=== PATIENT | female | born 1975 | race Caucasian/White ===

== ENCOUNTER 2020-07-26 22:02 | Emergency (ER) | payer MEDICAID, SELFPAY ==
[2020-07-26 22:05] VITALS: BP 109/65; PULSE 77; RESP 18; TEMP 36.1; O2SAT 99
--- NOTE | 2020-07-26 22:14 | ED.GENADUL_ITS ---
Discharge Plan Disposition Patient Disposition: HOME Condition: Stable Discharge Details Clinical Impression: Pain, dental Primary Care Provider: Sandrita,Local ED Provider: Cristhian Mandujano Home Meds and New Rx's Prescriptions: New prednisone 20 mg tablet 60 mg PO DAILY 4 Days Qty: 12 RF: 0 clindamycin HCl 150 mg capsule 450 mg PO TID 7 Days Qty: 63 RF: 0 Continued fluoxetine 40 mg capsule 40 mg PO DAILY RF: 0 ferrous sulfate 325 mg (65 mg iron) tablet 325 mg PO DAILY RF: 0 gabapentin 300 mg capsule 900 mg PO TID RF: 0 epinephrine 0.3 mg/0.3 mL auto-injector 0.3 mg IM PRN PRNRF: 0 albuterol sulfate [ProAir HFA] 90 mcg/actuation HFA aerosol inhaler 2 puff INHALATION PRN PRNRF: 0 baclofen 5 mg tablet 10 mg PO HS RF: 0 Discharge Instructions Additional Instructions: continue to take 1000mg tylenol and 600mg ibuprofen every 6 hours for pain as needed follow up with you dentist tomorrow if fevers or severe worsening pain return to the emergency department Medical Decision Making 45 yo female who had right upper molars extracted yesterday with her dentist in [place] comes in with pain and swelling since then. Denies fevers, chills, dyspnea or difficulty swallowing. Arrives HD stable with no submandibular s welling no pain over the hyoid or restricted neck movements. Has no drainage in the mouth and sutures in place in right upper gums without purulent discharge and has mild swelling of the gums. Suspect this is post op healing, no findings to suggest abscess or ludwigs. I will start her on clindamcyin to cover for possible wound infection until she calls her dentist tomorrow. She is having discomfort to the point it is affecting her sleep and discussed risks benefits of oxycodone, and she would like a small amount to help sleep. Return precautions given. Differential Diagnosis Differential Diagnosis: post op pain and swelling, dry socket HPI General Mode of arrival: ambulatory . Date/Time Provider Initiated Documentation: 07/26/20 22:08 . Limitations to Documentation: no limitations . Information obtained by: patient . History of Present Illness 45 year old F presents to the emergency department with the chief complaint of mouth pain, described as moderate, Patient reports no radiation. Patient started experiencing this day(s) (1) and it has been constant. No relieving factors improve symptom(s), No exacerbating factors reported . Patient notes no other symptoms.. Patient did receive the following treatments prior to arrival, NSAID Related Data Home Medications Medication Instructions Recorded Confirmed albuterol sulfate [ProAir HFA] 2 puff INHALATION PRN PRN 07/26/20 07/26/20 baclofen 10 mg PO HS 07/26/20 07/26/20 clindamycin HCl 450 mg PO TID 7 Days #63 cap 07/26/20 epinephrine 0.3 mg IM PRN PRN 07/26/20 07/26/20 ferrous sulfate 325 mg PO DAILY 07/26/20 07/26/20 fluoxetine 40 mg PO DAILY 07/26/20 07/26/20 gabapentin 900 mg PO TID 07/26/20 07/26/20 prednisone 60 mg PO DAILY 4 Days #12 tab 07/26/20 Previous Rx's Medication Instructions Recorded clindamycin HCl 450 mg PO TID 7 Days #63 cap 07/26/20 prednisone 60 mg PO DAILY 4 Days #12 tab 07/26/20 Allergies Allergy/AdvReac Type Severity Reaction Status Date / Time bee venom protein (honey bee) Allergy Severe Anaphylaxsi Unverified 07/26/20 22:12 s Penicillins Allergy Intermediate Nausea Unverified 07/26/20 22:12 General Stated Complaint: DentalOral SHAHEED: 4 Review of Systems All systems reviewed & are unremarkable except as noted in HPI and below Constitutional Constitutional: Denies chills, Denies fever(s) and Denies weakness ENT Ears, Nose, Mouth, and Throat: Denies change in voice Cardiovascular Cardiovascular: Denies chest pain and Denies dyspnea Respiratory Respiratory: Denies cough and Denies dyspnea Gastrointestinal Gastrointestinal: Denies abdominal pain, Denies nausea and Denies vomiting Musculoskeletal Musculoskeletal: Denies joint swelling Neurologic Neurologic: Denies weakness [facility] Social History Smoking/Tobacco Use Status: Never Smoking risk assessment performed?: Yes Alcohol Intake: never Substance use type: does not use Do you feel safe at home: Yes Do you feel safe in your relationship?: Yes Exam Const General: no acute distress Orientation: alert HENMT Head: normal to inspection Ears: external ears normal General nose exam: external nose normal Mouth: moist mucous membranes Eyes General: appearance normal, both eyes and all related structures Neck Neck: normal visual inspection Resp Effort & Inspection: normal respiratory effort and able to speak in complete sentences Cardio Rate: regular rate Skin General skin exam: no rashes or lesions noted Neuro General: patient alert and patient oriented x3 Extrem General: normal to inspection Psych Mental Status: mental status grossly normal Course Vital Signs Vital signs: Vital Signs Temperature 36.1 C L 07/26/20 22:05 Pulse 77 07/26/20 22:05 Respiratory Rate 18 07/26/20 22:05 Blood Pressure 109/65 07/26/20 22:05 Pulse Oximetry 99 07/26/20 22:05 Temperature 36.1 C L 07/26/20 22:05 Temperature Source Skin 07/26/20 22:05 Pulse 77 07/26/20 22:05 Respiratory Rate 18 07/26/20 22:05 Respiratory Effort Non-Labored 07/26/20 22:08 Blood Pressure 109/65 07/26/20 22:05 Blood Pressure Position Sitting 07/26/20 22:05 Pulse Oximetry 99 07/26/20 22:05 Oxygen Delivery Method Room Air 07/26/20 22:05 Oxygen Flow Rate 0 07/26/20 22:05 Pain Level 10 07/26/20 22:09
[2020-07-26 22:20] VITALS: BP 109/65; PULSE 77; RESP 18; TEMP 36.6; O2SAT 99
[2020-07-26] MEDS: Clindamycin 150 MG CAP 450 MG PO (22:20)
[2020-07-26] MEDS: predniSONE 20 MG TAB 60 MG PO (22:20)
== END 2020-07-26 22:24 | disposition home or self-care (01) ==
PROVIDERS: Emergency Provider Emergency Medicine
DX: R68.84 Jaw pain; G89.18 Other acute postprocedural pain
CPT/HCPCS: 99283; J7512

== ENCOUNTER 2020-12-29 14:45 | Emergency (ER) | payer MEDICAID, SELFPAY ==
[2020-12-29 14:50] VITALS: BP 106/57; PULSE 90; RESP 16; TEMP 36.7; O2SAT 97
--- NOTE | 2020-12-29 15:11 | ED.GENADUL_ITS ---
Discharge Plan Disposition Patient Disposition: HOME Condition: Stable Discharge Details Clinical Impression: Contusion Primary Care Provider: Thom Cyr ED Provider: Beth Roger Home Meds and New Rx's Prescriptions: No Action fluoxetine 40 mg capsule 60 mg PO DAILY RF: 0 ferrous sulfate 325 mg (65 mg iron) tablet 325 mg PO DAILY RF: 0 gabapentin 300 mg capsule 900 mg PO TID RF: 0 epinephrine 0.3 mg/0.3 mL auto-injector 0.3 mg IM PRN PRNRF: 0 albuterol sulfate [ProAir HFA] 90 mcg/actuation HFA aerosol inhaler 2 puff INHALATION PRN PRNRF: 0 baclofen 5 mg tablet 10 mg PO HS RF: 0 Discharge Instructions Instructions: Hematoma (ED) Additional Instructions: Rest, Ice, Compression, Elevation. Return to the ED for any severe increased pain, problems with blood circulation if your foot turns cold blue numb or tingly or any concerns. Use Estuardo wrap daily for the next 2 to 3 days. Please take Tylenol or Ibuprofen with food every 4-6 hours as needed for pain and swelling. Follow up with primary care provider in 3-5 days. Return to ED sooner if any worsening or concerns. Increase oral fluids. Referrals: Thom Cyr [Primary Care Provider] - Medical Decision Making 44-year-old female presents to the ER with right lower extremity contusion. Patient states she fell on a carpeted floor yesterday mechanical fall. There is a area of ecchymosis noted to the right anterior lopez, distal dorsal pedal pulses are intact and palpable. Patient has no other complaints at this time. She is concerned because the bruising is hard. She has a past medical history of Mhhplfk-Rahzf-Iiezh disease and has some decreased sensation to her lower extremities. EXAM:? XR TIB/FIB RT CLINICAL HISTORY: ? Contusion, fall, R/O fracture.? TECHNIQUE:? 2D digital imaging was performed. COMPARISON:? No exams were available for comparison FINDINGS: BONES: No acute fracture is present. No bony destructive lesion is seen. Visualized portion of knee and ankle joints are unremarkable. SOFT TISSUE: Rounded calcifications anterior subcutaneous fat. IMPRESSION: Unremarkable radiographs of the right tibia and fibula. Will place patient in estuardo wrap discuss RICE procedures with her. Patient verbalized understanding all of her questions were answered to the best my ability. Discussed strict return instruction and home care including Estuardo wrap ice HPI General Mode of arrival: ambulatory . Date/Time Provider Initiated Documentation: 12/29/20 14:45 . Limitations to Documentation: no limitations . Information obtained by: patient . HPI Narrative: 44-year-old female presents to the ER with right lower extremity contusion. Patient states she fell on a carpeted floor yesterday mechanical fall. There is a area of ecchymosis noted to the right anterior lopez, distal dorsal pedal pulses are intact and palpable. Patient has no other complaints at this time. She is concerned because the bruising is hard. She has a past medical history of Ybmiuje-Ejnzp-Wdwqo disease and has some decreased sensation to her lower extremities. Related Data Home Medications Medication Instructions Recorded Confirmed albuterol sulfate [ProAir HFA] 2 puff INHALATION PRN PRN 07/26/20 12/29/20 baclofen 10 mg PO HS 07/26/20 12/29/20 epinephrine 0.3 mg IM PRN PRN 07/26/20 12/29/20 ferrous sulfate 325 mg PO DAILY 07/26/20 12/29/20 fluoxetine 60 mg PO DAILY 07/26/20 12/29/20 gabapentin 900 mg PO TID 07/26/20 12/29/20 Allergies Allergy/AdvReac Type Severity Reaction Status Date / Time bee venom protein (honey bee) Allergy Severe Anaphylaxsi Unverified 12/29/20 14:57 s Penicillins Allergy Intermediate Nausea Unverified 12/29/20 14:57 General Stated Complaint: Orthopedic SHAHEED: 4 Review of Systems All systems reviewed & are unremarkable except as noted in HPI and below Musculoskeletal Comments: Right anterior leg contusion, s/p fall [facility] Social History Smoking/Tobacco Use Status: Never Smoking risk assessment performed?: Yes Alcohol Intake: never Substance use type: does not use Do you feel safe at home: Yes Do you feel safe in your relationship?: Yes Exam Extrem Right lower extremity: full ROM and lower leg Details: localized swelling and ecchymosis mid lower leg anterior Upper/lower leg/hip images: 1. Ecchymosis Course Vital Signs Vital signs: Vital Signs Temperature 36.7 C 12/29/20 14:50 Pulse 90 12/29/20 14:50 Respiratory Rate 16 12/29/20 14:50 Blood Pressure 106/57 L 12/29/20 14:50 Pulse Oximetry 97 12/29/20 14:50 Temperature 36.7 C 12/29/20 14:50 Temperature Source Temporal Artery Scan 12/29/20 14:50 Pulse 90 12/29/20 14:50 Respiratory Rate 16 12/29/20 14:50 Blood Pressure 106/57 L 12/29/20 14:50 Blood Pressure Position Supine 12/29/20 14:50 Pulse Oximetry 97 12/29/20 14:50 Oxygen Delivery Method Room Air 12/29/20 14:50 Oxygen Flow Rate 0 12/29/20 14:50 Pain Level 8 12/29/20 14:50
--- NOTE | 2020-12-29 15:16 | DI.RAD_ITS ---
Exam(s) XR TIB/FIB RT EXAM: XR TIB/FIB RT CLINICAL HISTORY: Contusion, fall, R/O fracture. TECHNIQUE: 2D digital imaging was performed. COMPARISON: No exams were available for comparison FINDINGS: BONES: No acute fracture is present. No bony destructive lesion is seen. Visualized portion of knee a nd ankle joints are unremarkable. SOFT TISSUE: Rounded calcifications anterior subcutaneous fat. IMPRESSION: Unremarkable radiographs of the right tibia and fibula. DATA REPOSITORY: RADIATION DOSE DELIVERED:
[2020-12-29 15:45] VITALS: BP 131/74; PULSE 81; RESP 16; TEMP 36.8; O2SAT 99
== END 2020-12-29 15:45 | disposition home or self-care (01) ==
PROVIDERS: Emergency Provider Registered Nurse Emergency; PCP Family Medicine
DX: S80.11XA Contusion of right lower leg, initial encounter (principal); W18.30XA Fall on same level, unspecified, initial encounter
CPT/HCPCS: 99283; 73590; 99282

== ENCOUNTER 2021-04-05 11:30 | Emergency (ER) | payer MEDICAID, SELFPAY ==
--- NOTE | 2021-04-05 11:30 | DI.RAD_ITS ---
Exam(s) XR LUMBAR SPINE COMPLETE EXAM: XR LUMBAR SPINE COMPLETE CLINICAL HISTORY: lower back pain. TECHNIQUE: 2D digital imaging was performed. COMPARISON: No exams were available for comparison FINDINGS: There is no evidence fracture or listhesis nor pars defects. Mild disc space narrowing at L5-S1 leve l and at 1-2 level and there is anterior osseous lipping at L1-2 level also noted. No scoliosis. No obvious without arthropathy in the lumbar spine. Sacroiliac joints appear unremarkable. No osseous lesions. No scoliosis. IMPRESSION: Subtle degenerative disc disease at L5-S1 and L1-2 levels. DATA REPOSITORY: RADIATION DOSE DELIVERED:
[2021-04-05 11:33] VITALS: BP 100/68; PULSE 107; RESP 18; TEMP 36.7; O2SAT 97
--- NOTE | 2021-04-05 11:42 | W.ED.GENAD ---
Discharge Plan Disposition Patient Disposition: HOME Condition: Stable Discharge Details Clinical Impression: Low back pain Primary Care Provider: Thom Cyr ED Provider: Cristhian Mandujano Home Meds and New Rx's Prescriptions: New cyclobenzaprine 10 mg tablet 10 mg PO TID PRNQty: 20 RF: 0 Continued fluoxetine 40 mg capsule 60 mg PO DAILY RF: 0 ferrous sulfate 325 mg (65 mg iron) tablet 325 mg PO DAILY RF: 0 gabapentin 300 mg capsule 900 mg PO TID RF: 0 epinephrine 0.3 mg/0.3 mL auto-injector 0.3 mg IM PRN PRNRF: 0 albuterol sulfate [ProAir HFA] 90 mcg/actuation HFA aerosol inhaler 2 puff INHALATION PRN PRNRF: 0 baclofen 5 mg tablet 10 mg PO HS RF: 0 topiramate 25 mg tablet 25 mg PO QAM RF: 0 Discharge Instructions Instructions: Low Back Strain (ED) Additional Instructions: take 1000mg tylenol and 600mg ibuprofen every 6 hours for pain as needed if you continue to have pain in a week see your primary care provider return to the emergency department if you feel more ill, have fevers, difficulty urinating or severe worsening pain Medical Decision Making 45 yo female comes in with lower back pain. She states she has CMT and her balance is off frequently and yesterday this happened and fell on her anterior knees, denies loc or hitting head. She woke up this morning and has had low back pain since. Denies fevers, difficulty urinating, denies alcohol or drug use. She can't think of anything that makes it better. She has a stable gait, and on exam has no saddle anesthesia, normal reflexes and normal distal sensation. She localizes the pain across the lumbar region, no midline tenderness, no erythema, no warmth. denies urinary symptoms and has no abdomen tenderness. I suspect musle spasm vs back strain, will obtain xray and treat with nsaids and tylenol. No findings on history or exam to suggest saddle anesthesia, cauda equina, osteomyelitis. xray shows no acute findings, subtle degenerative disc disease, she remains stable with no changes in exam, she is stable for d/c, will start a muscle relaxer and advised to f/u with pcp, return precautions given Differential Diagnosis Differential Diagnosis: muscle spasm, contusion, fracture Imaging Data Radiologic Study: Attestation: I personally reviewed and interpreted this imaging study as follows: Imaging: X-Ray Radiologist's impression: IMPRESSION: Subtle degenerative disc disease at L5-S1 and L1-2 levels HPI General Mode of arrival: ambulatory. Date/Time Provider Initiated Documentation: 04/05/21 11:30. Limitations to Documentation: no limitations. Information obtained by: patient. History of Present Illness 45 year old F presents to the emergency department with the chief complaint of lower back pain, described as moderate, Quality is described as aching, and is localized to the back. Patient reports no radiation. Patient started experiencing this hour(s) (6) and it has been constant. No relieving factors improve symptom(s), No exacerbating factors reported . Patient notes no other symptoms.. Related Data Home Medications Medication Instructions Recorded Confirmed albuterol sulfate [ProAir HFA] 2 puff INHALATION PRN PRN 07/26/20 12/29/20 baclofen 10 mg PO HS 07/26/20 04/05/21 epinephrine 0.3 mg IM PRN PRN 07/26/20 04/05/21 ferrous sulfate 325 mg PO DAILY 07/26/20 04/05/21 fluoxetine 60 mg PO DAILY 07/26/20 04/05/21 gabapentin 900 mg PO TID 07/26/20 04/05/21 cyclobenzaprine 10 mg PO TID PRN #20 tab 04/05/21 topiramate 25 mg PO QAM 04/05/21 04/05/21 Previous Rx's Medication Instructions Recorded cyclobenzaprine 10 mg PO TID PRN #20 tab 04/05/21 Allergies Allergy/AdvReac Type Severity Reaction Status Date / Time bee venom protein (honey bee) Allergy Severe Anaphylaxsi Unverified 04/05/21 11:38 s Penicillins Allergy Intermediate Nausea Unverified 04/05/21 11:38 General Stated Complaint: Nk/Back Pain SHAHEED: 3 Review of Systems All systems reviewed & are unremarkable except as noted in HPI and below Constitutional Constitutional: Denies chills, Denies fever(s) and Denies weakness Cardiovascular Cardiovascular: Denies chest pain and Denies dyspnea Respiratory Respiratory: Denies cough and Denies dyspnea Gastrointestinal Gastrointestinal: Denies abdominal pain, Denies nausea and Denies vomiting Musculoskeletal Musculoskeletal: Denies joint swelling Neurologic Neurologic: Denies weakness [facility] Surgical History (Updated 04/05/21 @ 11:47 by Cristin Blunt) Tubal ligation status Social History Smoking/Tobacco Use Status: Never Smoking risk assessment performed?: Yes Alcohol Intake: former Substance use type: does not use Do you feel safe at home: Yes Do you feel safe in your relationship?: Yes Exam Const General: no acute distress Orientation: alert HENMT Head: normal to inspection Ears: external ears normal General nose exam: external nose normal Mouth: moist mucous membranes Eyes General: appearance normal, both eyes and all related structures Neck Neck: normal visual inspection Resp Effort & Inspection: normal respiratory effort and able to speak in complete sentences Cardio Rate: regular rate Back/Spine/Pelvis Back: no CVA tenderness Thoracic/Lumbar Spine: thoracic and lumbar spine normal to inspection Skin General skin exam: no rashes or lesions noted Neuro General: patient alert and patient oriented x3 Extrem General: normal to inspection Psych Mental Status: mental status grossly normal Course Vital Signs Vital signs: Vital Signs Temperature 36.7 C 04/05/21 11:33 Pulse 107 H 04/05/21 11:33 Respiratory Rate 18 04/05/21 11:33 Blood Pressure 100/68 04/05/21 11:33 Pulse Oximetry 97 04/05/21 11:33 Temperature 36.7 C 04/05/21 11:33 Temperature Source Skin 04/05/21 11:33 Pulse 107 H 04/05/21 11:33 Respiratory Rate 18 04/05/21 11:33 Blood Pressure 100/68 04/05/21 11:33 Blood Pressure Position Standing 04/05/21 11:33 Pulse Oximetry 97 04/05/21 11:33 Oxygen Delivery Method Room Air 04/05/21 11:33 Oxygen Flow Rate 0 04/05/21 11:33 Pain Level 10 04/05/21 11:33 Comment tried heating pad 04/05/21 11:33
[2021-04-05] MEDS: Ibuprofen 600 MG TAB PO (11:46)
[2021-04-05] MEDS: Acetaminophen 500 MG TAB 1000 MG PO (11:46)
== END 2021-04-05 12:56 | disposition home or self-care (01) ==
PROVIDERS: Emergency Provider Emergency Medicine; PCP Family Medicine
DX: M54.5 Low back pain (principal); W18.39XA Other fall on same level, initial encounter
CPT/HCPCS: 99283; 72110

== ENCOUNTER 2021-06-27 07:07 | Emergency (ER) | payer MEDICAID, SELFPAY ==
[2021-06-27 07:18] VITALS: BP 104/57; PULSE 86; RESP 16; TEMP 36.9; O2SAT 98
--- NOTE | 2021-06-27 08:35 | W.ED.GENAD ---
Discharge Plan Disposition Patient Disposition: HOME Condition: Stable Discharge Details Clinical Impression: Weakness, Anemia, Elevated liver enzymes Primary Care Provider: Thom Cyr ED Provider: Lolita Garay Home Meds and New Rx's Prescriptions: Continued fluoxetine 40 mg capsule 60 mg PO DAILY RF: 0 ferrous sulfate 325 mg (65 mg iron) tablet 325 mg PO DAILY RF: 0 gabapentin 300 mg capsule 900 mg PO TID RF: 0 epinephrine 0.3 mg/0.3 mL auto-injector 0.3 mg IM PRN PRNRF: 0 baclofen 5 mg tablet 10 mg PO HS RF: 0 topiramate 25 mg tablet 25 mg PO QAM RF: 0 Discharge Instructions Instructions: Weakness (ED), Anemia (ED) Additional Instructions: Please return immediately to the emergency department if you develop any new or worsening symptoms, if your condition does not improve as expected, or if you become otherwise concerned. It is extremely important that you call soon as possible to make an appointment to be seen in follow-up for this visit by your primary care doctor and your neurologist as we discussed. 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 On exam Pt is well and non-toxic appearing.Benign neuro exam, no focal deficit, normal gait. Concern for Pt's typical chronic recurring symptom of apparently subjective weakness, possible metabolic/lyte derangement, other. Exam/hx at this time not c/w cauda equina/epidural abscess/epidural abscess/other acute spinal cord pathology, meningitis, sepsis, CVA, ecephalitis. Pt stated that she did come to ED for diagnostic w/u given h/o of same several times in the past, followed by neuro at [facility] for this, however out of abundance of caution plan for screening labs. Pt is amenable. Pt states that she does not want to wait in ED for call back from her neurologist. Labs reviewed, Hgb 10.9, AST 130, ALT 143. Unclear significance. I discussed Pt with Dr. Peña of neurology, who states reported symptoms not typical of charcobrianna pina, however given benign exam and report of symptoms as chronically recurring and unchanged, she agrees with no further w/u at this time, outpt f/u. I had a discussion with Patient regarding abnormal lab findings, return to emergency department precautions, home care, and importance of outpatient follow-up. Pt verbalizes understanding of the plan and is amenable. Patient discharged to home with clear plan for outpatient follow-up. All questions were answered. Disposition decision was made weighing the risks and benefits of hospitalization versus outpatient treatment, the risk for further decompensation, and the patient's wishes. Medical Records Medical records reviewed: Yes I reviewed the patient's medical records. Lab Data Lab results reviewed: Yes I reviewed the patient's lab results. Labs: Laboratory Tests Range/Units 06/27/21 06/27/21 08:30 08:30 WBC (4.4-10.8) 10^3/uL 8.42 RBC (3.93-5.22) 10^6/uL 4.34 Hgb (11.2-15.7) g/dL 10.9 L Hct (36.0-46.0) % 36.5 MCV (80-95) fL 84.1 MCH (27.0-33.0) pg 25.1 L MCHC (32.0-36.0) % 29.9 L RDW (11.7-14.6) % 16.1 H Plt Count (130-400) 10^3/uL 375 MPV (8.0-11.0) fL 10.3 Immature Gran % 0.4 Neutrophils % 68.8 Lymphocytes % 22.6 Monocytes % 5.8 Eosinophils % 2.0 Basophils % 0.4 Nucleated RBC % % 0 Absolute Neutrophils (1.2-6.7) 10^3/uL 5.80 Absolute Lymphocytes (1.2-3.4) 10^3/uL 1.90 Absolute Monocytes (0.1-0.8) 10^3/uL 0.49 Absolute Eosinophils (0.0-0.7) 10^3/uL 0.17 Absolute Basophils (0.0-0.2) 10^3/uL 0.03 Sodium (136-145) mmol/L 142 Potassium (3.5-5.1) mmol/L 4.1 Chloride (98-107) mmol/L 108 H Carbon Dioxide (21.0-32.0) mmol/L 28.6 Anion Gap (3-11) mmol/L 5.4 BUN (7-18) mg/dL 9 Creatinine (0.55-1.02) mg/dL 0.7 Estimated GFR/1.73 m2 (mL/min/1.73m2) >= 60.00 Glucose (74-106) mg/dL 82 Calcium (8.5-10.1) mg/dL 8.2 L Phosphorus (2.6-4.7) mg/dL 2.8 Magnesium (1.8-2.4) mg/dL 2.2 Total Bilirubin (0.2-1.0) mg/dL 0.4 AST (15-37) U/L 130 H ALT (14-59) U/L 143 H Alkaline Phosphatase (46-116) U/L 64 Total Protein (6.4-8.2) g/dL 6.8 Albumin (3.4-5.0) g/dL 3.3 L TSH (0.36-3.74) uIU/mL 1.47 HPI General Mode of arrival: ambulatory. Date/Time Provider Initiated Documentation: 06/27/21 07:48. Limitations to Documentation: no limitations. Information obtained by: patient, RN notes reviewed and old records reviewed. HPI Narrative: Rosanne Maya is a 46 y/o woman presenting to the emergency department for b/l leg weakness. Pt reports that she is seen by [facility] for charcot mango tooth disease. Pt reports that at times she has flares in which she develops fatigue and generalized weakness worse in b/l legs, making it difficult for her to stand for prolonged periods. Pt reports that this happens several times per year, lasts for 2-3 days, and then improves. Pt reports that she had this sensation this morning of fatigue and generalized weakness worse in b/l legs, and came to the emergency department for a work note as she stands all day. Pt reports that all symptoms are typical for her, no unusual or atypical features, and states that she does not feel the need for any type of diagnostic testing based on multiple episodes of prior similar episodes in the past. She reports generalized weakness worse in b/l legs, not worse on left/right. No focal UE weakness. Pt reports that she has been able to walk and accomplish ADLs this am. She denies any pain, fever, SOB, cough, numbness, rash, vomiting, diarrhea. Has been eating and drinking normally. Denies h/o recreational use, etoh. No recent med changes. Has been taking all meds as prescribed. Related Data Home Medications Medication Instructions Recorded Confirmed baclofen 10 mg PO HS 07/26/20 06/27/21 epinephrine 0.3 mg IM PRN PRN 07/26/20 06/27/21 ferrous sulfate 325 mg PO DAILY 07/26/20 06/27/21 fluoxetine 60 mg PO DAILY 07/26/20 06/27/21 gabapentin 900 mg PO TID 07/26/20 06/27/21 topiramate 25 mg PO QAM 04/05/21 06/27/21 Allergies Allergy/AdvReac Type Severity Reaction Status Date / Time bee venom protein (honey bee) Allergy Severe Anaphylaxsi Unverified 06/27/21 07:21 s Penicillins Allergy Intermediate Nausea Unverified 06/27/21 07:21 General Stated Complaint: Orthopedic SHAHEED: 4 Review of Systems Narrative: Constitutional: denies fevers Eyes: denies eye pain ENT: denies ear pain, dental pain, sore throat Cardiovascular: denies chest pain, edema Respiratory: denies SOB, cough GI: denies abdominal pain, vomiting, diarrhea : denies flank pain MSK: denies back pain, neck pain, arthralgias, myalgias Skin: denies rash Neuro: denies headaches, numbness, reports weakness as per HPI [facility] Active Problem List (Updated 06/27/21 @ 10:46 by Lolita Garay MD) Contusion (Acute) Low back pain (Acute) Weakness (Acute) Anemia (Chronic) Elevated liver enzymes (Acute) Surgical History (Updated 04/05/21 @ 11:47 by Cristin Blunt) Tubal ligation status Social History Smoking/Tobacco Use Status: Never Smoking risk assessment performed?: Yes Alcohol Intake: former Substance use type: does not use Do you feel safe at home: Yes Do you feel safe in your relationship?: Yes Exam Narrative Exam Narrative: Constitutional: well and [id number], pleasant, conversing normally HENT: head atraumatic/normocephalic/normal inspection, mucous membranes moist Eyes: conjunctiva normal, sclera normal, pupils 3mm b/l, ERRLA, EOMI, no nystagmus Neck: no stridor, normal ROM, trachea midline Chest: normal inspection Resp: normal work of breathing, LCTAB Cardio: normal rate, normal rhythm, no murmur appreciated GI: abdomen soft, non-tender, non-distended Back: normal inspection, no rash, no lumbar TTP/crepitus/deformity Skin: warm, dry, normal color, no rash Neuro: alert, not altered, data solutions architect 2-12 intact, motor 5/5 all extremities, normal sensation all extremities, normal tone, no clonus of LEs, normal gait Ext: no edema, no posterior calf TTP Psych: normal mood, normal affect, normal behavior Course Vital Signs Vital signs: Vital Signs Temperature 36.9 C 06/27/21 07:18 Pulse 86 06/27/21 07:18 Respiratory Rate 16 06/27/21 07:18 Blood Pressure 104/57 L 06/27/21 07:18 Pulse Oximetry 98 06/27/21 07:18 Temperature 36.9 C 06/27/21 07:18 Temperature Source Oral 06/27/21 07:18 Pulse 86 06/27/21 07:18 Respiratory Rate 16 06/27/21 07:18 Respiratory Effort 06/27/21 07:22 Blood Pressure 104/57 L 06/27/21 07:18 Blood Pressure Position Sitting 06/27/21 07:18 Pulse Oximetry 98 06/27/21 07:18 Oxygen Delivery Method Room Air 06/27/21 07:18 Oxygen Flow Rate 0 06/27/21 07:18 Pain Level 7 06/27/21 07:18
[2021-06-27 08:40] LABS: Abs Immature Grans 0.03 10^3/uL (0.0-0.06); Absolute Basophil Count 0.03 10^3/uL (0.0-0.2); Absolute Eosinophil Count 0.17 10^3/uL (0.0-0.7); Absolute Monocyte Count 0.49 10^3/uL (0.1-0.8); Basophils % 0.4; HCT 36.5 % (36.0-46.0); HGB 10.9 g/dL (11.2-15.7); Immature Grans % 0.4; Lymphocytes % 22.6; MCH 25.1 pg (27.0-33.0); MCHC 29.9 % (32.0-36.0); MCV 84.1 fL (80-95); MPV 10.3 fL (8.0-11.0); Monocytes % 5.8; Neutrophils % 68.8; Nucleated RBC 0 %; Platelet Count 375 10^3/uL (130-400); RBC 4.34 10^6/uL (3.93-5.22); RDW 16.1 % (11.7-14.6); RDW-SD 49.1 fL; WBC 8.42 10^3/uL (4.4-10.8)
[2021-06-27 08:57] LABS: Albumin 3.3 g/dL (3.4-5.0); Alkaline Phosphatase 64 U/L (46-116); Anion Gap 5.4 mmol/L (3-11); BUN 9 mg/dL (7-18); Bilirubin, Total 0.4 mg/dL (0.2-1.0); CO2 28.6 mmol/L (21.0-32.0); CREATININE 0.7 mg/dL (0.55-1.02); Calcium 8.2 mg/dL (8.5-10.1); Chloride 108 mmol/L (98-107); Glucose 82 mg/dL (74-106); PHOSPHORUS 2.8 mg/dL (2.6-4.7); Potassium 4.1 mmol/L (3.5-5.1); Sodium 142 mmol/L (136-145); Total Protein 6.8 g/dL (6.4-8.2)
[2021-06-27 08:58] LABS: ALT 143 U/L (14-59); AST 130 U/L (15-37); Magnesium 2.2 mg/dL (1.8-2.4); TSH (W/Ref FT4) 1.47 uIU/mL (0.36-3.74)
== END 2021-06-27 11:32 | disposition home or self-care (01) ==
PROVIDERS: Emergency Provider Student in an Organized Health Care Education/Training Program; PCP Family Medicine
DX: R53.1 Weakness (principal); D64.9 Anemia, unspecified; R74.01 Elevation of levels of liver transaminase levels
CPT/HCPCS: 36415; 80053; 99283; 83735; 84100; 84443; 85025

== ENCOUNTER 2021-10-15 11:54 | Emergency (ER) | payer MEDICAID, SELFPAY ==
--- NOTE | 2021-10-15 12:00 | DI.RAD_ITS ---
Exam(s) XR HIP LT COMPLETE AP PELVIS EXAM: XR HIP LT COMPLETE AP PELVIS INDICATION: Fall. COMPARISON: No exams were available for comparison TECHNIQUE: 2D digital imaging was performed. FINDINGS: No fracture or dislocation. SI joints and pubic symphysis appear intact. IMPRESSION: Negative pelvis and left hip DATA REPOSITORY: RADIATION DOSE DELIVERED:
[2021-10-15 12:02] VITALS: BP 128/59; PULSE 76; RESP 16; TEMP 36.6; O2SAT 98
--- NOTE | 2021-10-15 12:12 | ED.GENADUL_ITS ---
Discharge Plan Disposition Patient Disposition: HOME Condition: Stable Discharge Details Clinical Impression: Sciatica of left side Primary Care Provider: Thom Cyr ED Provider: Beth Roger Home Meds and New Rx's Prescriptions: Continued fluoxetine 40 mg capsule 60 mg PO DAILY 0RF Label Comments: TAKE 1 CAPSULE BY MOUTH ONCE DAILY ferrous sulfate 325 mg (65 mg iron) tablet 325 mg PO DAILY 0RF Label Comments: TAKE ONE TABLET BY MOUTH DAILY gabapentin 300 mg capsule 900 mg PO TID 0RF Label Comments: TK 3 CS PO TID epinephrine 0.3 mg/0.3 mL auto-injector 0.3 mg IM PRN PRN0RF Label Comments: INJECT INTO MUSCLE PRN ALLERGIC REACTION baclofen 5 mg tablet 10 mg PO HS 0RF Label Comments: TAKE ONE TABLET BY MOUTH NIGHTLY topiramate 25 mg tablet 25 mg PO QAM 0RF Label Comments: TAKE 1 TABLET BY MOUTH DAILY Discharge Instructions Instructions: Sciatica (ED) Additional Instructions: At this time x-rays are within normal limits. Alternate ice and heat. Use lidocaine patches which you can obtain [id number]. At this time I feel like this is an exacerbation of a sciatica problem. If continued pain please follow-up with orthopedic or your primary care provider. Please take Tylenol or Ibuprofen with food every 4-6 hours as needed for pain and swelling. Follow up with primary care provider in 3-5 days. Return to ED sooner if any worsening or concerns. Increase oral fluids. Stand Alone Forms: Work Release Referrals: Thom Cyr [Primary Care Provider] - 5 days Thom Sethi MD [ [facility] STAFF PHYSICIAN] - 2 weeks Discharge Data Discharge Date/Time-TO BE ENTERED AT DEPARTURE: 10/15/21 14:05 Medical Decision Making 46-year-old female presents to the ER with chief complaint of left hip and left buttock pain status post a fall 1 week ago. Patient is ambulatory with a slight limp upon initial presentation. Left hip and pelvis x-rays ordered. EXAM: XR HIP LT COMPLETE AP PELVIS INDICATION: Fall. COMPARISON: No exams were available for comparison TECHNIQUE: 2D digital imaging was performed. FINDINGS: No fracture or dislocation. SI joints and pubic symphysis appear intact. IMPRESSION: Negative pelvis and left hip Discussed x-ray results with patient who verbalized understanding. On reevaluation she is resting in no acute distress. She was given Tylenol and lidocaine patch here in the department. She did decline giving a urine sample. Instructed to follow-up with Ortho if continued pain. Patient given a work note. This text was generated using [employer] dictation system, please disregard any oddities of phrase or misspellings. HPI General Mode of arrival: ambulatory . Date/Time Provider Initiated Documentation: 10/15/21 12:06 . Limitations to Documentation: no limitations . Information obtained by: patient, RN notes reviewed and old records reviewed . HPI Narrative: 46-year-old female presents to the ER with chief complaint of left hip and left buttock pain status post a fall 1 week ago. Patient is ambulatory with a slight limp upon initial presentation. She reports that she had a mechanical fall landing on her left side. She denies any loss of consciousness or any other injuries from the fall. She reports burning type pain in her left buttock which radiates around her left groin. She has been taking muscle relaxers such as gabapentin and baclofen which she normally takes on a regular basis. 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 Related Data Home Medications Medication Instructions Recorded Confirmed baclofen 5 mg tablet 10 mg PO HS 07/26/20 10/15/21 epinephrine 0.3 mg/0.3 mL 0.3 mg IM PRN PRN 07/26/20 10/15/21 injection, auto-injector ferrous sulfate 325 mg (65 mg 325 mg PO DAILY 07/26/20 10/15/21 iron) tablet fluoxetine 40 mg capsule 60 mg PO DAILY 07/26/20 10/15/21 gabapentin 300 mg capsule 900 mg PO TID 07/26/20 10/15/21 topiramate 25 mg tablet 25 mg PO QAM 04/05/21 10/15/21 Allergies Allergy/AdvReac Type Severity Reaction Status Date / Time bee venom protein (honey bee) Allergy Severe Anaphylaxsi Unverified 10/15/21 12:06 s Penicillins Allergy Intermediate Nausea Unverified 10/15/21 12:06 General Stated Complaint: Orthopedic SHAHEED: 4 Review of Systems All systems reviewed & are unremarkable except as noted in HPI and below Musculoskeletal Musculoskeletal: Reports arthralgias (left hip) PFSH All Active Problems (Updated 10/15/21 @ 13:54 by Beth Roger) Contusion (Acute) Low back pain (Acute) Weakness (Acute) Anemia (Chronic) Elevated liver enzymes (Acute) Sciatica of left side (Acute) Surgical History Tubal ligation status Social History Smoking/Tobacco Use Status: Never Smoking risk assessment performed?: Yes Alcohol Intake: former Substance use type: does not use Do you feel safe at home: Yes Do you feel safe in your relationship?: Yes Exam Extrem General: capillary refill normal and limp Upper/lower leg/hip images: 1. Tenderness 2. Tenderness and radiating pain Course Vital Signs Vital signs: Vital Signs Temperature 36.6 C 10/15/21 12:02 Pulse 76 10/15/21 12:02 Respiratory Rate 16 10/15/21 12:02 Blood Pressure 128/59 L 10/15/21 12:02 Pulse Oximetry 98 10/15/21 12:02 Temperature 36.6 C 10/15/21 12:02 Temperature Source Skin 10/15/21 12:02 Pulse 76 10/15/21 12:02 Respiratory Rate 16 10/15/21 12:02 Respiratory Effort 10/15/21 12:02 Blood Pressure 128/59 L 10/15/21 12:02 Blood Pressure Position Sitting 10/15/21 12:02 Pulse Oximetry 98 10/15/21 12:02 Oxygen Delivery Method Room Air 10/15/21 12:02 Oxygen Flow Rate 0 10/15/21 12:02 Pain Level 9 10/15/21 12:02
--- NOTE | 2021-10-15 12:20 | NUR.NOTE ---
pt refusing UPT. had tubal ligtion. Provider aware. Nursing Note:
[2021-10-15] MEDS: Lidocaine 5% Patch 1 PATCH TP (13:00)
[2021-10-15] MEDS: Acetaminophen 325 MG TAB 650 MG PO (13:19)
[2021-10-15 14:06] VITALS: BP 119/80; PULSE 74; RESP 14; TEMP 36.7; O2SAT 98
[2021-10-15 14:13] VITALS: BP 119/80; PULSE 74; RESP 14; TEMP 36.7; O2SAT 98
== END 2021-10-15 14:05 | disposition home or self-care (01) ==
PROVIDERS: Emergency Provider Registered Nurse Emergency; PCP Family Medicine
DX: M54.32 Sciatica, left side (principal); M25.552 Pain in left hip; W18.39XA Other fall on same level, initial encounter
CPT/HCPCS: 99283; 73502

== ENCOUNTER → 2022-02-11 12:48 | Outpatient (CLI) | payer MEDICAID, SELFPAY ==
--- NOTE | 2022-02-11 11:35 | DI.RAD_ITS ---
Exam(s) XR HAND LT COMPLETE EXAM: XR HAND LT COMPLETE CLINICAL HISTORY: LT HAND PUNCTURE WOUND WO FB, [id number]. TECHNIQUE: 2D digital imaging was performed. COMPARISON: No exams were available for comparison FINDINGS: 3 views There is no evidence of fracture or dislocation. No radiopaque foreign body. Bone density is normal . No osseous lesions nor erosions evident. IMPRESSION: No significant osseous findings. No radiopaque foreign body. There is no gas in the soft tissues, g iven the apparent penetrating injury. DATA REPOSITORY: RADIATION DOSE DELIVERED:
== END ==
PROVIDERS: PCP Family Medicine; Visit Provider Nurse Practitioner Family
DX: S61.432A Puncture wound without foreign body of left hand, initial encounter (principal); X58.XXXA Exposure to other specified factors, initial encounter
CPT/HCPCS: 73130

== ENCOUNTER 2022-02-11 17:45 | Outpatient (REF) | payer MEDICAID, SELFPAY ==
[2022-02-11 14:11] LABS: Abs Immature Grans 0.02 10^3/uL (0.0-0.06); Absolute Basophil Count 0.07 10^3/uL (0.0-0.2); Absolute Eosinophil Count 0.35 10^3/uL (0.0-0.7); Absolute Lymphocyte Count 2.49 10^3/uL (1.2-3.4); Absolute Monocyte Count 0.55 10^3/uL (0.1-0.8); Absolute Neutrophil Count 5.37 10^3/uL (1.2-6.7); Basophils % 0.8; HCT 33.3 % (36.0-46.0); HGB 9.8 g/dL (11.2-15.7); Immature Grans % 0.2; Lymphocytes % 28.1; MCH 23.8 pg (27.0-33.0); MCHC 29.4 % (32.0-36.0); MCV 81 fL (80-95); Monocytes % 6.2; Neutrophils % 60.7; Platelet Count 350 10^3/uL (130-400); RBC 4.11 10^6/uL (3.93-5.22); RDW 17.1 % (11.7-14.6); RDW-SD 50.2 fL; WBC 8.85 10^3/uL (4.4-10.8)
[2022-02-11 14:16] LABS: ESR 8 mm/hr (0-20)
[2022-02-11 14:21] LABS: C-Reactive Protein 0.54 mg/dL (0.0-0.3)
== END 2022-02-11 17:46 | disposition home or self-care (01) ==
LOC: LBN 17:45
PROVIDERS: PCP Family Medicine; Visit Provider Psychiatry & Neurology Psychiatry
DX: S61.432A Puncture wound without foreign body of left hand, initial encounter (principal); D64.9 Anemia, unspecified
CPT/HCPCS: 85652; 85025; 86140

== ENCOUNTER 2022-11-16 11:00 | Emergency (ER) | payer MEDICAID, SELFPAY ==
[2022-11-16 11:07] VITALS: BP 105/59; PULSE 63; TEMP 36.8; O2SAT 98
--- NOTE | 2022-11-16 11:27 | ED.GENADUL_ITS ---
Discharge Plan Disposition Patient Disposition: Home Discharge Details Clinical Impression: Dog bite of left hand Primary Care Provider: Thom Cyr ED Provider: Beth Roger Home Meds and New Rx's Prescriptions: New doxycycline hyclate 100 mg tablet 100 mg PO BID 10 Days Qty: 20 0RF Continued fluoxetine 40 mg capsule 60 mg PO DAILY Patient Comments: TAKE 1 CAPSULE BY MOUTH ONCE DAILY ferrous sulfate 325 mg (65 mg iron) tablet 325 mg PO DAILY Patient Comments: TAKE ONE TABLET BY MOUTH DAILY gabapentin 300 mg capsule 900 mg PO TID Patient Comments: TK 3 CS PO TID epinephrine 0.3 mg/0.3 mL auto-injector 0.3 mg IM PRN PRN Patient Comments: INJECT INTO MUSCLE PRN ALLERGIC REACTION baclofen 5 mg tablet 10 mg PO HS Patient Comments: TAKE ONE TABLET BY MOUTH NIGHTLY topiramate 25 mg tablet 25 mg PO QAM Patient Comments: TAKE 1 TABLET BY MOUTH DAILY Discharge Instructions Instructions: Animal Bite (ED) Additional Instructions: Please take the antibiotics twice daily with food or yogurt or probiotic as directed. Keep clean and dry. The Steri-Strips will start to slough off on their own in approximately 4 to 6 days. After the Steri-Strips come off please wash under running soap and water. Return to the ER or be seen again for any signs of infection, red streaks, swelling or drainage or any concerns. Follow up with primary care provider in 3-5 days. Return to ED sooner if any worsening or concerns. Increase oral fluids. Please take Tylenol or Ibuprofen with food every 4-6 hours as needed for pain and swelling. If you change your mind about rabies vaccination please return. Also discussed with your PCP a tetanus booster if needed. Referrals: Thom Cyr [Primary Care Provider] - 3 days Medical Decision Making 47-year-old female presents to the ER after having a dog bite her left hand. She was walking her dog when another dog started fighting with her dog and she tried to break them up. She has approximately 2 linear 1-1/2 cm lacerations to the dorsum of her left hand, and 2 other smaller puncture wounds noted. She thinks that she is up-to-date on her tetanus vaccination. I did discuss rabies prophylaxis and vaccination with her she declines at this time. She does have full range of motion noted to her hand. Doxycycline, topical anesthetic wound care ordered. will plan for Steri-Strips. I did discuss benefits of rabies prophylaxis patient declined at this time. I also discussed tetanus vaccination which patient reports that she thinks she is up-to-date. Wound care performed by corporate staff accountant, wound was Steri-Stripped, patient was given antibiotics. Discussed strict return instructions and follow-up care. This text was generated using [employer] dictation system, please disregard any oddities of phrase or misspellings. HPI General Mode of arrival: ambulatory . Date/Time Provider Initiated Documentation: 11/16/22 11:13 . Limitations to Documentation: no limitations . Information obtained by: patient, RN notes reviewed and old records reviewed . HPI Narrative: 47-year-old female presents to the ER after having a dog bite her left hand. She was walking her dog when another dog started fighting with her dog and she tried to break them up. She has approximately 2 linear 1-1/2 cm lacerations to the dorsum of her left hand, and 2 other smaller puncture wounds noted. She thinks that she is up-to-date on her tetanus vaccination. I did discuss rabies prophylaxis and vaccination with her she declines at this time. She does have full range of motion noted to her hand. No significant past medical history noted. Related Data Home Medications Medication Instructions Recorded Confirmed baclofen 5 mg tablet 10 mg PO HS 07/26/20 11/16/22 epinephrine 0.3 mg/0.3 mL 0.3 mg IM PRN PRN 07/26/20 11/16/22 injection, auto-injector ferrous sulfate 325 mg (65 mg 325 mg PO DAILY 07/26/20 11/16/22 iron) tablet fluoxetine 40 mg capsule 60 mg PO DAILY 07/26/20 11/16/22 gabapentin 300 mg capsule 900 mg PO TID 07/26/20 11/16/22 topiramate 25 mg tablet 25 mg PO QAM 04/05/21 11/16/22 doxycycline hyclate 100 mg tablet 100 mg PO BID 10 days #20 tabs 11/16/22 Previous Rx's Medication Instructions Recorded doxycycline hyclate 100 mg tablet 100 mg PO BID 10 days #20 tabs 11/16/22 Allergies Allergy/AdvReac Type Severity Reaction Status Date / Time bee venom protein (honey bee) Allergy Severe Anaphylaxsi Unverified 11/16/22 11:09 s Penicillins Allergy Intermediate Nausea Unverified 11/16/22 11:09 General Stated Complaint: AnimalBite SHAHEED: 4 Review of Systems Integumentary/Breasts Skin/Breast: Reports as per HPI and Reports wounds PFSH All Active Problems (Updated 11/16/22 @ 12:13 by Beth Roger NP) Contusion (Acute) Low back pain (Acute) Weakness (Acute) Anemia (Chronic) Elevated liver enzymes (Acute) Dog bite of left hand (Acute) Surgical History Tubal ligation status Social History Smoking/Tobacco Use Status: Never Smoking risk assessment performed?: Yes Alcohol Intake: former Substance use type: does not use Do you feel safe at home: Yes Do you feel safe in your relationship?: Yes Exam Extrem Left upper extremity: wrist Details: normal to inspection; no tenderness and no swelling and hand Details: normal capillary refill, neurosensory exam normal, tendon exam normal, normal ROM of fingers and laceration Hand/finger images: 1. Approximately 1.5 cm laceration, 2. Approximately 1.5 cm laceration, bleeding controlled, 3. Small puncture wound bleeding controlled Course Vital Signs Vital signs: Vital Signs Temperature 36.8 C 11/16/22 11:07 Pulse 63 11/16/22 11:07 Blood Pressure 105/59 L 11/16/22 11:07 Pulse Oximetry 98 11/16/22 11:07 Temperature 36.8 C 11/16/22 11:07 Pulse 63 11/16/22 11:07 Blood Pressure 105/59 L 11/16/22 11:07 Blood Pressure Position Sitting 11/16/22 11:07 Pulse Oximetry 98 11/16/22 11:07 Oxygen Delivery Method Room Air 11/16/22 11:07 Oxygen Flow Rate 0 11/16/22 11:07 Pain Level 9 11/16/22 11:07
[2022-11-16] MEDS: Lidocaine/Epinephri/Tetracaine Topical Gel 3 ML TP (11:35)
[2022-11-16] MEDS: Doxycycline Hyclate 100 MG CAP PO (11:35)
[2022-11-16] MEDS: Doxycycline Hyclate 100 MG, 2 CAPS/BTL PO (12:20)
--- NOTE | 2022-11-16 12:22 | NUR.NOTE ---
Nursing Note: Animal bite report form faxed to health officer of [facility]. Message left for Health Officer on cell phone regarding animal bite report.
== END 2022-11-16 12:20 | disposition home or self-care (01) ==
PROVIDERS: Emergency Provider Registered Nurse Emergency; PCP Family Medicine
DX: S61.452A Open bite of left hand, initial encounter (principal); W54.0XXA Bitten by dog, initial encounter; Y93.K1 Activity, walking an animal
CPT/HCPCS: 99283; 99284